=== PATIENT | male | born 1945 | race Caucasian/White ===

== ENCOUNTER 2022-09-02 05:52 | Day surgery (SDC) | payer OTHER ==
[~2022-09-02] VITALS: Ht 180.3 cm; Wt 97.0 kg
[~2022-09-02 05:52] MED LIST: GLUCHON PO; LOSARTAN-HCTZ1 EAC6 PO; OMEP20ER PO; PRAV20 PO
--- NOTE | 2022-09-02 06:42 | NUR ---
Ambulatory in Day Surgery History, Chart, Medications and Allergies reviewed before start of procedure. Lungs clear T/O to Auscultation. Pre-Op teaching done. Pt verbalizes understanding. Patient States Post-Procedure ride home has been arranged with Ana Luisa.
--- NOTE | 2022-09-02 07:56 | NUR ---
09/02/22 0756 Oksana George NO PREOP ANTIBIOTICS ORDERED PER .
--- NOTE | 2022-09-02 10:55 | NUR ---
Discharge instructions reviewed with patient. Patient verbalizes understanding. Copy given to patient to take home. Discharged via wheelchair to private car for ride home.
== END 2022-09-02 10:50 | disposition home or self-care (01) ==
LOC: ORSCMMR 05:52 → ORD 07:30 → ORSCMMR 10:50
DX: K40.30 Unilateral inguinal hernia, with obstruction, without gangrene, not specified as recurrent (principal); I10 Essential (primary) hypertension; E78.5 Hyperlipidemia, unspecified; K21.9 Gastro-esophageal reflux disease without esophagitis; Z79.899 Other long term (current) drug therapy
CPT/HCPCS: 49650; S2900; A9270; C1781; J1100; J2250; J2370; J2405; J2704; J2795; J3010; J7120